=== PATIENT | male | born 1960 ===

== ENCOUNTER 2016-08-27 17:04 | Inpatient (IN) | payer BC ==
[2016-08-27] MEDS ORDERED: SODIUM CHLORIDE 0.9% 1000ML 1,000 ML IVS ONE (18:16)
[2016-08-27] MEDS ORDERED: DICYCLOMINE HCL INJ 20 MG/2 ML AMP IM ONE (19:05)
[2016-08-27] MEDS ORDERED: MORPHINE SULFATE INJ 10 MG/ML VIAL IV ONE (19:06)
--- NOTE | 2016-08-27 19:27 | ED.PDOC ---
History of Present Illness - General Chief Complaint: GI Problem Stated Complaint: fever, cough, chest pain, n/v/d Time Seen by Provider: 08/27/16 19:23 Source: patient Exam Limitations: no limitations - History of Present Illness Initial Comments: James Gallegos 56 y/o male stated that yesterday night had onset of diarrhea watery non bloody accompanied by nausea/vomiting several times and this morning he had fever and chills.He stated that he has chronic abdominal pain, diverticulosis and chf,thoracic aneurysm s/p repair. Timing/Duration: 24 hours Severity: moderate Improving Factors: nothing Worsening Factors: eating Associated Symptoms: loss of appetite, nausea/vomiting Allergies/Adverse Reactions: Allergies NO KNOWN ALLERGY Allergy (Verified 08/27/16 17:37) Home Medications: Ambulatory Orders Amlodipine Besylate 10 mg PO DAILY 08/27/16 Dicyclomine HCl 20 mg PO TID 08/27/16 Escitalopram [Lexapro] 10 mg PO DAILY 08/27/16 Txmyqowh-Jhrhclem-Bvkzbvrszs A [Emetrol] 1 melanie PO PRN 08/27/16 Lisinopril 20 mg PO BID 08/27/16 Nitroglycerin [Nitrostat] 0.4 mg SL PRN 08/27/16 Ondansetron [Zofran Odt] 8 mg PO PRN 08/27/16 Ranitidine HCl 150 mg PO DAILY 08/27/16 Varenicline Tartrate [Chantix Starting M... 0.5 mg X 11 & 1 mg X 42] 1 narinder PO DAILY 08/27/16 Review of Systems - Review of Systems Constitutional: States: fever EENTM: States: no symptoms reported Respiratory: States: no symptoms reported Cardiology: States: no symptoms reported Gastrointestinal/Abdominal: States: see HPI Genitourinary: States: no symptoms reported Musculoskeletal: States: no symptoms reported Skin: States: no symptoms reported Neurological: States: no symptoms reported Endocrine: States: no symptoms reported Hematologic/Lymphatic: States: no symptoms reported Past Medical History (General) - Patient Medical History Hx Cardiac Disorders: Yes Hx Congestive Heart Failure: Yes Hx Hypertension: Yes Surgical History: other - Thoracic aortic aneurysm repair - Vaccination History Hx Tetanus, Diphtheria Vaccination: No Hx Influenza Vaccination: No Hx Pneumococcal Vaccination: No Immunizations Up to Date: No - Social History Hx Tobacco Use: Yes Hx Alcohol Use: Yes - occasional Hx Substance Use: No Hx Substance Use Treatment: No Hx Depression: No - Activities of Daily Living Patient Lives Alone: No - family Hospice Agency (if applicable):: None Grooming Ability: Independent Eating (Feeding) Ability: Independent Toileting Ability: Independent - Female History Patient is a Female of Child Bearing Age (10 -59 yrs old): No Patient : No Family Medical History - Family History Mother Family History: Unknown Hx Family Hypertension: Yes - parents Hx Family Diabetes: Yes - parents Hx Family Cancer: Yes - prostate Physical Exam - Physical Exam General Appearance: Alert, No apparent distress Eye Exam: bilateral normal Ears, Nose, Throat: hearing grossly normal, normal ENT inspection, normal pharynx Neck: non-tender, full range of motion, supple Respiratory: chest non-tender, lungs clear, normal breath sounds, no respiratory distress Cardiovascular/Chest: normal peripheral pulses, regular rate, rhythm, no edema, no gallop, no JVD, no murmur Gastrointestinal/Abdominal: normal bowel sounds, soft, no organomegaly, no pulsatile mass, tenderness - left side abdomen no peritoneal signs Back Exam: no CVA tenderness, no vertebral tenderness Extremity: non-tender, normal inspection, no pedal edema, no calf tenderness Neurologic: no motor/sensory deficits, alert, normal mood/affect, oriented x 3 Skin Exam: normal color, warm/dry Lymphatic: no adenopathy Progress - Results/Orders Results/Orders: 08/27/16 18:30 EKG STAT 08/27/16 19:49 Sodium Chloride 0.9% 1000ML [Ns 1000 ml] 1,000 ml IVS .QD 08/27/16 19:57 CLOSTRIDIUM DIFFICILE AG/TOXIN Stat 08/27/16 19:59 Hold Metformin x 48Hrs [id number] Laboratory Results WBC 14.7 K/mm3 (4.8-10.8) H 08/27/16 18:16 RBC 4.36 M/mm3 (4.70-6.10) L 08/27/16 18:16 Hgb 13.7 gm/dL (14.0-18.0) L 08/27/16 18:16 Hct 41.3 % (42.0-52.0) L 08/27/16 18:16 MCV 94.6 fl (80.0-94.0) H 08/27/16 18:16 MCH 31.4 pg (27.0-31.0) H 08/27/16 18:16 MCHC 33.2 g/dL (33.0-37.0) 08/27/16 18:16 RDW 13.4 % (11.5-14.5) 08/27/16 18:16 Plt Count 290 K/mm3 (130-400) 08/27/16 18:16 MPV 6.9 fl (7.40-10.4) L 08/27/16 18:16 Absolute Neuts (auto) 11.60 K/uL (1.8-6.8) H 08/27/16 18:16 Absolute Lymphs (auto) 1.70 K/uL (1.0-3.4) 08/27/16 18:16 Absolute Monos (auto) 1.30 K/uL (0.2-0.8) H 08/27/16 18:16 Absolute Eos (auto) 0.00 K/uL (0.0-0.4) 08/27/16 18:16 Absolute Basos (auto) 0.10 K/uL (0.0-0.1) 08/27/16 18:16 Neutrophils % 78.8 % (42.0-78.0) H 08/27/16 18:16 Lymphocytes % 11.4 % (20.0-50.0) L 08/27/16 18:16 Monocytes % 9.1 % (2.0-9.0) H 08/27/16 18:16 Eosinophils % 0.0 % (1.0-5.0) L 08/27/16 18:16 Basophils % 0.7 % (0.0-2.0) 08/27/16 18:16 Sodium 135 mmol/L (135-145) 08/27/16 18:16 Potassium 3.2 mmol/L (3.6-5.0) L 08/27/16 18:16 Chloride 105 mmol/L (101-111) 08/27/16 18:16 Carbon Dioxide 22 mmol/L (21-31) 08/27/16 18:16 Anion Gap 11.2 (12-18) L 08/27/16 18:16 BUN 19 mg/dL (7-18) H 08/27/16 18:16 Creatinine 1.15 mg/dL (0.6-1.3) 08/27/16 18:16 BUN/Creatinine Ratio 16.5 (10-20) 08/27/16 18:16 Random Glucose 130 mg/dL (70-105) H 08/27/16 18:16 Serum Osmolality 274.1 mOsm/L (275-295) L 08/27/16 18:16 Lactic Acid 0.7 mmol/L (0.5-2.2) 08/27/16 19:40 Calcium 9.8 mg/dL (8.4-10.2) 08/27/16 18:16 Total Bilirubin 0.8 mg/dL (0.2-1.0) 08/27/16 18:16 AST 22 IU/L (10-42) 08/27/16 18:16 ALT 13 IU/L (10-60) 08/27/16 18:16 Alkaline Phosphatase 94 IU/L (42-121) 08/27/16 18:16 Creatine Kinase 318 IU/L (38-174) H* 08/27/16 18:16 CK-MB (CK-2) 2.6 ng/mL (0.0-4.4) 08/27/16 18:16 CK-MB (CK-2) % Not Reportable 08/27/16 18:16 Troponin I 0.05 ng/mL (0.01-0.05) 08/27/16 19:40 B-Natriuretic Peptide 74.0 pg/ml (0-100) 08/27/16 19:40 Serum Total Protein 7.7 gm/dL (6.4-8.2) 08/27/16 18:16 Albumin 4.2 g/dl (3.2-5.5) 08/27/16 18:16 Globulin 3.5 gm/dL (2.3-3.5) 08/27/16 18:16 Albumin/Globulin Ratio 1.2 (1.1-1.9) 08/27/16 18:16 Urine Color Yellow (Yellow) 08/27/16 20:29 Urine Appearance Clear (Clear) 08/27/16 20:29 Urine pH 5.5 (4.5-7.8) 08/27/16 20:29 Ur Specific [place] 1.020 (1.005-1.030) 08/27/16 20:29 Urine Protein 100 mg/dL H 08/27/16 20:29 Urine Glucose (UA) Negative mg/dL (Negative) 08/27/16 20:29 Urine Ketones Trace mg/dL (NEGATIVE) 08/27/16 20:29 Urine Blood Moderate (Negative) H 08/27/16 20:29 Urine Nitrite Negative 08/27/16 20:29 Urine Bilirubin Small (NEGATIVE) H 08/27/16 20:29 Urine Urobilinogen 0.2 mg/dL (0.2-1.0) 08/27/16 20:29 Ur Leukocyte Esterase Negative (Negative) 08/27/16 20:29 Urine RBC 1-3 /hpf 08/27/16 20:29 Urine WBC 1-3 /hpf 08/27/16 20:29 Ur Epithelial Cells 0 /hpf 08/27/16 20:29 Urine Bacteria 1+ 08/27/16 20:29 Urine Mucus Large 08/27/16 20:29 - EKG/XRAY/CT CT Ordered: Yes - abdomen/pelvis:acute sigmoid diverticulitis,aaa-stable/ radiologist Departure - Departure Clinical Impression: Diarrhea, Diverticulitis of sigmoid colon Abdominal pain Qualifiers: Abdominal location: lower abdomen Qualifier Code: (R10.30) Lower abdominal pain , unspecified Time of Disposition: 21:27 - D/W Dr. Joiner-Hospitalist Disposition: Admit Patient Condition: Fair Departure Forms: Patient Portal Self Enrollment Diet: other - NPO Referrals: Grover Sarmiento III, MD [Primary Care Provider] - 1-2 Weeks Home Medications: Ambulatory Orders Amlodipine Besylate 10 mg PO DAILY 08/27/16 Dicyclomine HCl 20 mg PO TID 08/27/16 Escitalopram [Lexapro] 10 mg PO DAILY 08/27/16 Gjycders-Cnpqstmq-Xcaauodwue A [Emetrol] 1 melanie PO PRN 08/27/16 Lisinopril 20 mg PO BID 08/27/16 Nitroglycerin [Nitrostat] 0.4 mg SL PRN 08/27/16 Ondansetron [Zofran Odt] 8 mg PO PRN 08/27/16 Ranitidine HCl 150 mg PO DAILY 08/27/16 Varenicline Tartrate [Chantix Starting M... 0.5 mg X 11 & 1 mg X 42] 1 narinder PO DAILY 08/27/16
[2016-08-27] MEDS ORDERED: SODIUM CHLORIDE 0.9% 1000ML 1,000 ML IVS PRN (19:49)
--- NOTE | 2016-08-27 20:15 | RAD ---
Procedure: XR CHEST 1 VIEW Exam Date: 08/27/2016 Ordering Provider: Power Judge Clinical Indication: fever Comparison: 10/02/2011 Findings: Residuals of thoracic surgery. Cardiac size is magnified by technique. Pulmonary vasculature is normal. Mediastinal contour is normal. Aortic contour is tortuous. There is no focal lung consolidation. No pleural effusion. There is no pneumothorax. There is no acute bony or soft tissue abnormality. Impression: 1. No acute abnormalities in the chest. Electronically signed by: Maxx Srivastava MD 08/27/2016 8:14 PM CDT
--- NOTE | 2016-08-27 21:18 | CT ---
Procedure: CT ABDOMEN PELVIS WITH IV CONTRAST Exam Date: 08/27/2016 Ordering Provider: Power Judge Clinical Indication: Generalized abdominal pain Comparison: 03/29/2015 TECHNIQUE: 5 mm images were taken through the abdomen and pelvis after the administration of nonionic intravenous contrast material. Oral contrast was not administered. Coronal and sagittal reformatted images were generated. This exam was performed according to our departmental dose optimization program which includes use of automated exposure control, adjustment of the mA and/or kV according to patient size and/or use of iterative reconstruction technique. FINDINGS: Lower chest: Nonacute Abdomen: Liver and biliary system: No liver lesions. Very mild intrahepatic biliary ductal dilatation. There is cholelithiasis without CT evidence of acute cholecystitis. Spleen: Unremarkable Pancreas: Unremarkable Adrenal glands: Unremarkable Kidneys: No suspicious lesions or hydronephrosis in either kidney. Lymph nodes: No lymphadenopathy. Retroperitoneum, peritoneal cavity, abdominal wall: No ascites. No free intraperitoneal air. 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 No para-aortic hematoma. Stable abdominal aortic aneurysm measuring 3.7 cm at the level of the celiac artery. Pelvis: Lymph nodes: No lymphadenopathy Peritoneal cavity: Trace pelvic free fluid Bowel: Multiple top limits of normal in size loops of small bowel with air-fluid levels. Postsurgical changes at the level of the cecum likely related to prior appendectomy. Mural thickening of the sigmoid colon with subtle adjacent fatty infiltration. Colonic diverticula. No abscess formation or evidence of perforation. Bladder: Unremarkable Pelvic organs: Prostate calcifications. Bones: Nonacute IMPRESSION: 1. Findings suggestive of sigmoid diverticulitis. No evidence of perforation or abscess formation. 2. Multiple top limits of normal in size small bowel loops with air-fluid levels. Findings could be reactive or related to recent enteritis, less likely small bowel obstruction. 3. Cholelithiasis without CT evidence of acute cholecystitis. 4. 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 No para-aortic hematoma. 5. Stable abdominal aortic aneurysm measuring 3.7 cm at the level of the celiac artery. Annual follow-up is recommended. Findings were discussed with Dr. Power Judge at the time of dictation. Electronically signed by: Maxx Srivastava MD 08/27/2016 9:18 PM CDT
[2016-08-27] MEDS ORDERED: metroNIDAZOLE IV PREMIX 500MG 500 MG in PREMIX BAG 1 BAG IVPB ONE (21:24)
[2016-08-27] MEDS ORDERED: levoFLOXacin 750MG IV 750 MG in PREMIX BAG 1 BAG IVPB ONE (21:24)
[2016-08-27] MEDS ORDERED: metroNIDAZOLE IV PREMIX 500MG 100 ML IVPB ONE (21:36)
--- NOTE | 2016-08-27 21:45 | HP ---
SUPERVISING PHYSICIAN: James Valladares M.D. CHIEF COMPLAINT: Fever, cough, nausea and vomiting, diarrhea. HISTORY OF PRESENT ILLNESS: Mr. Gallegos is a 56 year-old male patient that presented on 08/27/16 to the Emergency Room after he had an onset of diarrhea that he described as watery and nonbloody that was accompanied by nausea and vomiting several times starting on Friday and progressively worsened until date of admission to the Emergency Department. On the morning of admission, he noted that he was having fever and chills, and that his abdominal pains had worsened. He does have a history of chronic abdominal pain with diverticulosis and has had several admissions for acute diverticulitis. In the Emergency Department, he had a CT of the abdomen done with contrast and per radiology interpretation there is suggestion of a sigmoid diverticulitis with no evidence of perforation or abscess formation. 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 Laboratory studies showed white count of 14.7 initially with hemoglobin 13.7, hematocrit 41.3 with differential showing a left shift. Chemistries did show low potassium 3.2 with BUN 19, creatinine 1.15. Liver functions showed to be within normal limits. Elevated CPK at 318, troponin 0.05. In the Emergency Department he was started on Levaquin and Flagyl and then admitted to the Medical/Surgical floor for continued treatment and evaluation of acute diverticulitis. PAST MEDICAL HISTORY: 1. Diverticulosis. 2. Hyperlipidemia. 3. Hypertension. 4. Tobacco abuse. 5. Gastroesophageal reflux disease controlled with [id number] Zantac. PAST SURGICAL HISTORY: 1. Appendectomy in 1973. 2. Back surgery in 2004 for sciatica. 3. Abdominal aneurysm repair. 4. Valve replacement in 2011 with last echocardiogram showing to be in 2014 with an ejection fraction of 60% with a grade 1 diastolic dysfunction. HOME MEDICATIONS: 1. Emetrol 1 p.r.n. 2. Ranitidine 150 mg daily. 3. Dicyclomine 20 mg 3 times a day. 4. Lisinopril 20 mg twice daily. 5. Lexapro daily. 6. Amlodipine 10 mg daily. 7. Chantix starter pack. 8. Nitrostat 0.4 mg p.r.n. 9. Zofran 80 mg p.r.n. ALLERGIES: NO KNOWN DRUG ALLERGIES. FAMILY HISTORY: Significant for coronary artery disease in his father, also has Alzheimer's disease. Mother at age 54 of unknown cause. She had a history of type 2 diabetes and alcoholism. SOCIAL HISTORY: The patient is employee at [employer]. He is . His at age 36 secondary to pneumonia. He does have a history of 1 pack per day smoker and quit previously in 07/2014. He does report that he drinks on a regular basis and only consumes beer. REVIEW OF SYSTEMS: CONSTITUTIONAL: As noted in the History of Present Illness, fever and general malaise. HEENT: Denies any headaches, nasal congestion or sore throat. RESPIRATORY: Does note he has a nonproductive cough but no shortness of breath. CARDIOVASCULAR: No notable chest pains, syncopal episodes. GASTROINTESTINAL: As noted in the history of present illness. GENITOURINARY: Denies any dysuria, hematuria or other urinary symptoms. NEUROLOGIC: Denies any syncopal episodes, neurological changes or deficits. PHYSICAL EXAMINATION: VITAL SIGNS: Initially in the Emergency Department, temperature was 99.8 with initial blood pressure 137/89, respirations 20, pulse 84. He was satting 98% on room air. Admission weight 78.3 kg. GENERAL: The patient is alert. Appeared to be in no acute distress at time of admission. HEENT: Tympanic membranes were clear bilaterally. Oropharynx was pink with dry mucosal membranes. There are no lesions noted. NECK: Supple with full range of motion. There is no jugular venous distention noted. CHEST: Lungs are clear to auscultation without any notable rhonchi, wheezing or rales. CARDIOVASCULAR: Regular rate and rhythm without appreciable murmurs, gallops, or rubs. ABDOMEN: Notable for left sided abdominal tenderness on palpation with no rebound tenderness. Bowel sounds were present. EXTREMITIES: No clubbing, cyanosis or edema. NEUROLOGIC: He is alert and oriented times three. LABORATORY: Initial laboratory studies showed an elevated white count of 14.7 with hemoglobin 13.7, hematocrit 41.3, platelet count 290,000. Differential did show a left shift. Chemistries initially showed low potassium 3.2 with BUN 19, creatinine 1.15, slightly elevated CPK of 318. All other liver functions showed to be within normal limits. Initial troponin was 0.04, BNP was 74. Urinalysis showed 100 protein with a moderate amount of blood and a small amount of bilirubin. Microscopic revealed 1+ bacteria, zero epithelials, 1 to 3 WBCs, 1 to 3 RBCs, large amount of mucous. RADIOLOGY: Initial chest x-ray in the Emergency Department per radiology interpretation showed no acute abnormalities of the chest. He also then had a CT of the abdomen and pelvis with contrast and per radiology interpretation there were findings of sigmoid diverticulitis but no evidence of perforation or abscess formation. There was also note that there were multiple top limits of normal in size small bowel loops with air-fluid levels. Findings could be consistent related to recent enteritis but less likely a small bowel obstruction. Also noted cholelithiasis on the CT without any evidence of cholecystitis. There was also mention of chronic dissection of the aorta extending to the left external iliac aorta with no periaortic hematoma and there is a stable abdominal aortic aneurysm measuring 3.7 at the level of the celiac artery. ASSESSMENT: 1. Acute sigmoid diverticulitis with the patient having a history of chronic diverticulosis and multiple episodes of diverticulitis. 2. Leukocytosis secondary to number 1. 3. Mild electrolyte imbalance with a mild hypokalemia. 4. Moderate dehydration secondary to nausea and vomiting associated symptoms with acute diverticulitis. 5. History of gastroesophageal reflux disease controlled with over-the- counter Zantac. 6. Chronic tobacco abuse. 7. History of hypertension. 8. Hyperlipidemia. PLAN: The patient will be admitted to the Medical/Surgical floor for continued treatment and evaluation of acute sigmoid diverticulitis. Dr. Douglass has been consulted and will await his findings. Will start the patient on Levaquin and Flagyl. He will be on bowel rest with NPO status with IV fluids per fluid maintenance. Anticipate length of stay to be 2 to 3 days. Until then, the patient will be closely monitored and treated appropriately. Once the patient is clinically stable enough to be discharged, he can continue with outpatient treatment and he will need close clinical followup with his primary care provider, Dr. Sarmiento. #[id number] [facility]
[2016-08-27] MEDS ORDERED: SODIUM CHLORIDE 0.9% (FLUSH) 10 ML SYG IV PRN (21:48)
[2016-08-27] MEDS ORDERED: LEVALBUTEROL NEBS 1.25 MG/3 ML VIAL INH PRN (21:48)
[2016-08-27] MEDS ORDERED: IV SET AND CAP CHANGE INJ INJ SCH (22:00)
[2016-08-27] MEDS: KCL 20 MEQ/NS 1,000 ML IVS PRN (23:04)
[2016-08-27] MEDS: LEVALBUTEROL NEBS 1.25 MG/3 ML VIAL INH SCH (23:24)
[2016-08-28] MEDS: MORPHINE SULFATE INJ 10 MG/ML VIAL IV PRN ×3 (00:10→12:37)
[2016-08-28] MEDS ORDERED: metroNIDAZOLE IV PREMIX 500MG 100 ML IVPB ONE ×2 (09:12→17:03)
[2016-08-28] MEDS: LISINOPRIL 10 MG TAB PO SCH ×2 (09:12→20:37)
[2016-08-28] MEDS: metroNIDAZOLE IV PREMIX 500MG 500 MG in PREMIX BAG 1 BAG IVPB SCH ×2 (09:14→17:16)
[2016-08-28] MEDS: LEVALBUTEROL NEBS 1.25 MG/3 ML VIAL INH SCH ×3 (09:45→20:17)
--- NOTE | 2016-08-28 10:03 | CONS ---
DATE OF CONSULTATION: 08/28/16 HISTORY OF PRESENT ILLNESS: The patient is a 56-year-old male who was admitted through the Emergency Room with abdominal pain, nausea, vomiting and found to have a mildly elevated white count. The patient states he has been told in the past that he has a history of diverticulitis. He denies blood per rectum, melanotic stools, weight loss. The patient states it worsened with food, but no specific food. PAST MEDICAL HISTORY: 1. Thoracic aortic aneurysm repair. 2. Hypertension. 3. Cardiac disorder. 4. History of congestive heart failure. MEDICATIONS: 1. Amlodipine. 2. Dicyclomine. 3. Lexapro. 4. Lisinopril. 5. Nitroglycerin. 6. Zofran. 7. Emetrol. ALLERGIES: NO KNOWN DRUG ALLERGIES. FAMILY HISTORY: Positive for diabetes, hypertension, and prostate cancer in his father. SOCIAL HISTORY: The patient has an approximately 30 to 40 pack year history of tobacco abuse. He uses alcohol on a routine basis. He has no history of substance abuse. REVIEW OF SYSTEMS: Unremarkable. He has occasional wheezing, shortness of breath, but no chest pain. PHYSICAL EXAMINATION: GENERAL: The patient is awake, alert, cooperative, in mild distress. VITAL SIGNS: The patient is currently afebrile, normotensive. HEENT: Sclerae nonicteric. Mucous membranes moist. NECK: Without adenopathy. BACK: Without CVA tenderness. CHEST: Equal breath sounds bilaterally. HEART: Regular rate and rhythm. ABDOMEN: Soft. There are active bowel sounds. He has diffuse tenderness, greatest in the suprapubic area. EXTREMITIES: Without cyanosis, clubbing or edema. LABORATORY: White blood cell count last night of 14,000, hemoglobin 13, platelet count 270,000, 78% neutrophils. Potassium slightly low at 3.2, creatinine elevated at 1.15. Urinalysis showed specific gravity of 1.020. There was moderate blood, small bilirubin, 1 to 3 red cells, 1 to 3 white cells , positive urine bacteria. CT scan of the abdomen was consistent with sigmoid diverticulitis without free air or free fluid or specific abscess cavity. ASSESSMENT: 1. Acute diverticulitis, probably more than first episode. PLAN: Bowel rest. Antibiotic therapy with Levaquin and Flagyl. Assuming the patient improves, eventually send him home on a low residue diet with plans for colonoscopy in 6 to 8 weeks. #[id number] [facility]
[2016-08-28] MEDS: KCL 20 MEQ/NS 1,000 ML IVS PRN ×2 (10:41→23:06)
[2016-08-28] MEDS: amLODIPine BESYLATE 5 MG TAB PO SCH (17:17)
[2016-08-28] MEDS: ONDANSETRON INJ 4 MG/2 ML VIAL IV PRN (17:37)
[2016-08-28] MEDS: DICYCLOMINE HCL 20 MG TAB PO SCH (20:23)
[2016-08-28] MEDS: levoFLOXacin 750MG IV 750 MG in PREMIX BAG 1 BAG IVPB SCH (20:24)
[2016-08-29] MEDS ORDERED: metroNIDAZOLE IV PREMIX 500MG 100 ML IVPB ONE ×5 (00:09→19:58)
[2016-08-29] MEDS: metroNIDAZOLE IV PREMIX 500MG 500 MG in PREMIX BAG 1 BAG IVPB SCH ×3 (00:12→15:59)
[2016-08-29] MEDS ORDERED: NICOTINE PATCH 14 MG TD ONE (07:35)
[2016-08-29] MEDS ORDERED: ESCITALOPRAM 10 MG TAB ONE (07:35)
[2016-08-29] MEDS: SODIUM CHLORIDE 0.9% (FLUSH) 10 ML SYG IV SCH ×3 (08:19→21:18)
[2016-08-29] MEDS: DICYCLOMINE HCL 20 MG TAB PO SCH ×3 (08:25→20:57)
[2016-08-29] MEDS: ESCITALOPRAM 10 MG TAB PO SCH (08:26)
[2016-08-29] MEDS ORDERED: NICOTINE PATCH 14 MG TD SCH (09:00)
[2016-08-29] MEDS: ONDANSETRON INJ 4 MG/2 ML VIAL IV PRN ×2 (09:38→20:47)
[2016-08-29] MEDS ORDERED: INSULIN DETEMIR 100 UNITS/ML PEN SUBCU ONE (10:33)
[2016-08-29] MEDS ORDERED: PROCHLORPERAZINE INJ 10 MG/2 ML VIAL IV PRN (10:56)
[2016-08-29] MEDS ORDERED: MAGNESIUM HYDROXIDE 30 ML UD PO ONE (10:57)
[2016-08-29] MEDS ORDERED: KCL 20 MEQ/NS 0 ML IVS ONE (11:00)
[2016-08-29] MEDS ORDERED: DEX 5% W/NACL 0.45% 1000ML 0 ML IVS ONE (11:04)
[2016-08-29] MEDS: MORPHINE SULFATE INJ 10 MG/ML VIAL IV PRN (11:08)
[2016-08-29] MEDS: KCL 20MEQ/D5 1/2NS 1,000 ML IVS PRN ×2 (11:16→17:57)
[2016-08-29] MEDS: NON-FORMULARY MEDICATION 1 EA MIS (Amlodipine Besylate [Amlodipine Besylate] 10 MG) PO SCH (11:41)
[2016-08-29] MEDS: LISINOPRIL 10 MG TAB PO SCH ×3 (11:42→20:56)
--- NOTE | 2016-08-29 11:44 | RAD ---
EXAM DESCRIPTION: Abdomen Flat Upright CLINICAL HISTORY: 56 years Male, Diverticulitis COMPARISON: None. FINDINGS: The lung bases are clear without evidence of previous sternotomy with no free abdominal air and small air-fluid levels scattered in both the small bowel and colon suggesting an ileus or enterocolitis. Minimal prominence of small bowel loops in the left mid abdomen are present but in a nonobstructive pattern. An unusual air-fluid collection in the lower abdomen or pelvis to strongly suggest an abscess is not apparent. No unusual calcifications or bony abnormalities noted. IMPRESSION: Abnormal abdomen with mildly prominent small bowel and air-fluid levels in the colon and small bowel most consistent with an ileus or an enterocolitis. Electronically signed by: James Correia MD 08/29/2016 11:44 AM CDT
[2016-08-29] MEDS: PANTOPRAZOLE SODIUM IV 40 MG VIAL IV SCH (11:50)
[2016-08-29] MEDS: LEVALBUTEROL NEBS 1.25 MG/3 ML VIAL INH SCH ×3 (12:13→20:17)
[2016-08-29] MEDS ORDERED: PROCHLORPERAZINE INJ 10 MG/2 ML VIAL IV ONE (12:16)
[2016-08-29] MEDS ORDERED: PROMETHAZINE SUPP 25 MG SUP PR ONE (12:17)
[2016-08-29] MEDS ORDERED: ONDANSETRON INJ 4 MG/2 ML VIAL IV ONE (12:18)
[2016-08-29] MEDS: amLODIPine BESYLATE 5 MG TAB PO SCH (18:16)
[2016-08-29] MEDS ORDERED: CARVEDILOL 12.5 MG TAB ONE (19:57)
--- NOTE | 2016-08-29 20:19 | PN ---
DATE: 08/29/16 SUPERVISING PHYSICIAN: James Valladares M.D. SUBJECTIVE: The patient continues to be nauseated this morning. He was given a nicotine patch which may have contributed to this as well as he was advanced to clear liquids which may have been prematurely done. He does remain afebrile. His daughter is present at time of assessment and was quite irritated with the situation saying we were not taking care of her dad's problem. She requested the patient be transferred. I did speak with her at length and explain that the patient would not be able to be transferred at her request, that care was being provided and reassured the patient and daughter as well that everything was being done, and he was being followed closely by hospitalist group as well as general surgery with Dr. Douglass. The patient reassured his daughter that he wanted to stay in the hospital in [place] and would comply with the treatment plan. OBJECTIVE: VITAL SIGNS: T max 98.7, pulse 51, blood pressure 155/82, respirations 18, O2 sat 98% on room air. I's and O's show a positive balance of 1869 with 2494 in, 625 out. He has had some diarrhea. Weight is 78.8 kg. CHEST: Lungs remain clear to auscultation bilaterally. HEART: Regular rate and rhythm. ABDOMEN: Remains soft with positive bowel sounds with just some mild diffuse tenderness. No rebound tenderness on deep palpation. EXTREMITIES: No clubbing cyanosis or edema. NEUROLOGIC: He remains alert and oriented times three. LABORATORY: White count remains within normal limits at 6.8 with hemoglobin 12.1, hematocrit 36.2, platelet count 210,000. Differential now has normalized without a left shift. Chemistries show just a mildly low sodium at 131 with potassium 3.7, BUN 13, creatinine 0.8. MICROBIOLOGY: There are no microbiology specimens. RADIOLOGY: Abdominal series is pending. ASSESSMENT: 1. Acute sigmoid diverticulitis with the patient having a history of chronic diverticulosis and multiple episodes of diverticulitis in the past. 2. Leukocytosis secondary to number 1, now resolved after starting on antibiotic therapy. 3. Mild electrolyte imbalance on admission with a mild hypokalemia, now resolved after IV therapy. 4. Moderate dehydration secondary to persistent nausea and vomiting associated with his symptoms of acute diverticulitis, improving with IV therapy. 5. History of gastroesophageal reflux disease controlled with over-the- counter Zantac in addition to IV Protonix. 6. Chronic tobacco abuse. 7. History of hypertension. 8. Hyperlipidemia. PLAN: The patient will be continued on current plan of care NPO for bowel rest. Dr. Douglass continues to follow the patient. He recommends that we continue with antiemetics, pain medicine and fluids. Anticipate an additional 1 to 2 days of admission for continued antibiotic therapy to include Levaquin and Flagyl. The patient is shown to be stable in regards to his H&H and white count, but continues to be symptomatic in regards to nausea and vomiting. Will continue to support the patient medically and anticipate discharge once the patient is able to tolerate advancing his diet at which time he can discharge to continue with outpatient antibiotic therapy and to followup with his primary care provider, Dr. Sarmiento. Until discharge, will continue to follow the patient closely and treat appropriately. #[id number] [facility]
[2016-08-29] MEDS: levoFLOXacin 750MG IV 750 MG in PREMIX BAG 1 BAG IVPB SCH (20:50)
[2016-08-29] MEDS ORDERED: NON-FORMULARY MEDICATION 1 EA MIS (Carvedilol [Carvedilol] 25 MG) PO SCH (21:00)
[2016-08-29] MEDS ORDERED: CARVEDILOL 12.5 MG TAB PO ONE (21:00)
[2016-08-30] MEDS: metroNIDAZOLE IV PREMIX 500MG 500 MG in PREMIX BAG 1 BAG IVPB SCH ×2 (00:21→08:37)
--- NOTE | 2016-08-30 01:34 | PCM.CORE ---
Physician DVT/VTE - Nurse DVT Assessment & Total Each Risk Factor Represents 2 Points: Major Surgery >45 minutes Each Risk Factor Represents 1 Point: Age 41-60, Hx of smoking past year Each Risk Factor is 1 Point: Hx of Inflammatory Bowel Disease DVT Assessment Score: 5 - 5 or more Very High Risk Treatments: Early Ambulation *, Sequential Compression Device Pharmacological: Enoxaparin 40mg SQ Daily
[2016-08-30] MEDS: PANTOPRAZOLE SODIUM IV 40 MG VIAL IV SCH (06:15)
[2016-08-30 07:51] VITALS: O2SAT 98
[2016-08-30] MEDS: LEVALBUTEROL NEBS 1.25 MG/3 ML VIAL INH SCH ×2 (07:52→15:48)
[2016-08-30] MEDS ORDERED: metroNIDAZOLE IV PREMIX 500MG 100 ML IVPB ONE (08:19)
[2016-08-30] MEDS ORDERED: CARVEDILOL 12.5 MG TAB PO SCH (09:00)
[2016-08-30] MEDS: DICYCLOMINE HCL 20 MG TAB PO SCH (10:16)
[2016-08-30] MEDS: ESCITALOPRAM 10 MG TAB PO SCH (10:16)
[2016-08-30] MEDS: LISINOPRIL 10 MG TAB PO SCH ×2 (10:16→15:49)
[2016-08-30] MEDS: ENOXAPARIN SODIUM 40 MG/0.4 ML SYG SUBCU SCH ×2 (10:17→10:19)
[2016-08-30] MEDS: SODIUM CHLORIDE 0.9% (FLUSH) 10 ML SYG IV SCH (10:17)
[2016-08-30] MEDS: NON-FORMULARY MEDICATION 1 EA MIS (Amlodipine Besylate [Amlodipine Besylate] 10 MG) PO SCH (10:24)
[2016-08-30 10:45] VITALS: BP 154/71; TEMP 97.3
[2016-08-30] MEDS ORDERED: metroNIDAZOLE 500 MG TAB PO SCH (12:30)
[2016-08-30] MEDS ORDERED: levoFLOXacin 500 MG TAB PO SCH (12:30)
--- NOTE | 2016-09-02 10:40 | DS ---
SUPERVISING PHYSICIAN: Vj Alamo MD DISCHARGE DIAGNOSIS: 1. Acute sigmoid diverticulitis with the patient having a history of chronic diverticulosis and multiple episodes of diverticulitis in the past, showing improvement after starting therapy to include IV fluids, bowel rest, and antibiotics. 2. Leukocytosis, secondary to #1, showing resolution after starting on antibiotic therapy. 3. Mild electrolyte imbalance on admission with a mild hypokalemia, resolved after IV therapy. 4. Moderate dehydration secondary to persistent nausea and vomiting associated with symptoms of diverticulitis, improving with IV therapy. 5. History of gastroesophageal reflux disease, controlled with over-the- counter Zantac in addition to IV Protonix. 6. Chronic tobacco abuse. 7. History of hypertension. 8. Hyperlipidemia. HISTORY OF PRESENT ILLNESS: Mr. Gallegos is a 56-year-old, male patient that presented on 08/27/16 to the Emergency Room after he had an onset of diarrhea that he described as watery and nonbloody that was accompanied by nausea and vomiting several times starting on Friday and progressively worsened until date of admission to the Emergency Department. On the morning of admission, he noted that he was having fever and chills, and that his abdominal pains had worsened. He does have a history of chronic abdominal pain with diverticulosis and has had several admissions for acute diverticulitis. In the Emergency Department, he had a CT of the abdomen done with contrast and per radiology interpretation there is suggestion of a sigmoid diverticulitis with no evidence of perforation or abscess formation. 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 Laboratory studies showed white count of 14.7 initially with hemoglobin 13.7, hematocrit 41.3 with differential showing a left shift. Chemistries did show low potassium 3.2 with BUN 19, creatinine 1.15. Liver functions showed to be within normal limits. Elevated CPK at 318, troponin 0.05. In the Emergency Department he was started on Levaquin and Flagyl and then admitted to the Medical/Surgical floor for continued treatment and evaluation of acute diverticulitis. LABORATORY: Initial white count on admission was 14.7, after initiation of therapy, it normalized and at discharge was 6.8. Hemoglobin and hematocrit remained stable and at discharge were 12.1 and 36.2. Platelet count 210,000. Differential did show a left shift initially, but after initiation of therapy, it normalized and at discharge was normal. Chemistries at time of admission showed electrolytes with potassium 3.2 and normal sodium of 135, BUN 19, creatinine 1.15. CPK 318, troponin 0.04. BNP 74. Liver functions were all within normal limits. Lactic acid was 0.7. After initiation of therapy throughout at hospitalization, at discharge, potassium was 3.4, sodium 136. Liver functions remained within normal limits. Urinalysis on admission showed protein 100, moderate blood, small amount of bilirubin with microscopic showing normal limits. MICROBIOLOGY: No specimens were submitted. RADIOLOGY: Initial chest x-ray in the Emergency Department prior to admission per radiology interpretation showed no acute abnormalities of the chest. He had a CT of the abdomen and pelvis with contrast and per radiology interpretation, there were findings of suggested sigmoid diverticulitis but no evidence of perforation or abscess formation. There was also note that there were multiple top limits of normal in size small bowel loops with air-fluid levels. Findings could be related to recent enteritis, but less likely a small bowel obstruction. Also noted cholelithiasis on the CT without any evidence of cholecystitis. There was also mention of chronic dissection of the aorta extending to the left external iliac aorta with no periaortic hematoma and there is a stable abdominal aortic aneurysm measuring 3.7 at the level of the celiac artery with recommendation for annual followup. HOSPITAL COURSE: Mr. Gallegos was admitted through the Emergency Department as noted in history of present illness. He was started on Flagyl and Levaquin for diverticulitis. He was made NPO for bowel rest and provided antiemetics. Medical consultation was requested by Dr. Douglass who followed the patient through admission and discharge. The patient was slowly transitioned to a clear liquid diet and prior to discharge was tolerating this well. He did have some episodes of nausea and vomiting which were controlled with Phenergan and Zofran. Clinically, he did improve and was able to tolerate a diet prior to discharge. PLAN: The patient was discharged on 08/30/16 with instructions to have close clinical followup with Dr. Sarmiento in 7 days and was to call the office to schedule an appointment. He was to resume his home medications as previous to admission and to take new medications as directed. He was encouraged to increase his fluids daily to prevent dehydration and return to the hospital should he failure of improvement in his symptoms or any concerning changes. New prescriptions at discharge included: 1. Flagyl 500 mg q.8h., #21. 2. Levaquin 500 mg q.24h., #7. DIET: Low residual diet. ACTIVITY: Increase as tolerated. CONDITION AT DISCHARGE: Stable. #[id number] [facility]
== END 2016-08-30 16:05 | disposition home or self-care (01) | DRG 391 ==
LOC: ER 17:04 → OBSVTOIN 21:42 → MS 21:42
PROVIDERS: ADMIT Emergency Medicine; ATTEND Nurse Practitioner Family
PROC: BW21YZZ Computerized Tomography (CT Scan) of Abdomen and Pelvis using Other Contrast (ICD-10-PCS; principal; 2016-08-27)
DX: K57.32 Diverticulitis of large intestine without perforation or abscess without bleeding (principal); I71.02 Dissection of abdominal aorta; E87.6 Hypokalemia; E86.0 Dehydration; K21.9 Gastro-esophageal reflux disease without esophagitis; I10 Essential (primary) hypertension; E78.5 Hyperlipidemia, unspecified; G89.29 Other chronic pain; I71.4 Abdominal aortic aneurysm, without rupture; Z95.2 Presence of prosthetic heart valve; Z87.891 Personal history of nicotine dependence; Z79.899 Other long term (current) drug therapy

== ENCOUNTER 2016-11-06 05:49 | Day surgery (SDC) | payer BC ==
[2016-11-06] MEDS ORDERED: LACTATED RINGERS 1,000 ML ONE (07:00)
--- NOTE | 2016-11-06 09:13 | OP ---
DATE OF PROCEDURE: 11/06/16 PREPROCEDURE DIAGNOSIS: 1. Abnormal CT scan exam. 2. Thickening within the sigmoid colon. 3. Diverticulosis. 4. Left lower quadrant pain. POSTPROCEDURE DIAGNOSIS: 1. Moderately severe diverticulosis in the sigmoid and descending colon. 2. 1 cm polyp in the ascending colon with a mucus cap. PROCEDURE: 1. Colonoscopy to the cecum. 2. Polypectomy. SURGEON: Jai Martin MD. ANESTHESIA: Monitored anesthesia care. FINDINGS: With the patient under adequate sedation, digital exam showed normal anal canal. Slightly enlarged prostate. No rectal masses. Rectum is otherwise unremarkable. Moderate severely diverticulosis in the sigmoid and descending colon area with large diverticular openings. Significant spasm and mild narrowing. No actual tight stricture. There are some erythematous changes around the diverticular openings, but there was no evidence of any acute inflammation. The descending colon was otherwise normal. Splenic flexure was unremarkable. The transverse colon was normal. The ascending colon and cecum were reached. The ileocecal valve and appendix opening both identified. There is a small polyp, a little over 1 cm in size, sessile in appearance in the proximal ascending colon just near the cecum. It has a mucus cap. The entire polyp was removed at the base without any difficulty and cautery applied. Hemostasis adequate. No bleeding was seen at the end of the procedure. The polyp was retrieved broken down into pieces and retrieved in the polyp trap. The polyp cauterized base was clean. The patient tolerated the procedure well. Reexamination of the colon on scope withdrawal did not show any additional new findings. Both flexures were carefully examined. Total scope withdrawal time was 7-1/2 minutes. FINAL IMPRESSION: 1. Moderately severe diverticulosis of the sigmoid and descending colon without evidence of diverticulitis. No mucosal changes. 2. 1 cm sized polyp in the ascending colon near the cecum, removed by endoscopic cauterized polypectomy. RECOMMENDATION: 1. High fiber diet. Metamucil on a regular basis. Add MiraLAX. 2. Recommend followup colonoscopy for polyp surveillance in five years. 3. Resume all medications. 4. Advise about bleeding and pain. If any of those occur, the patient is advised to call us right away. 5. Otherwise, the patient is to return to primary care physician for regular care. #[id number] cc: MD FAITH Mukherjee
--- NOTE | 2016-11-06 09:34 | RAD ---
EXAM DESCRIPTION: Abdomen Flat Upright CLINICAL HISTORY: 56 years Male, POST COLONOSCOPY COMPARISON: None. FINDINGS: There is a large amount of gas scattered throughout the colon. There are several gas-filled small bowel loops scattered throughout the midabdomen, none of which appear markedly dilated. Surgical clips in the right lower quadrant may be related to prior appendectomy. Surgical clips are noted in the left inguinal region. The upright view shows no free subdiaphragmatic gas. Postoperative changes in the mediastinum only partially visualized. IMPRESSION: Large amount of gas scattered throughout the GI tract, but no pneumoperitoneum or other complication related to recent colonoscopy. Electronically signed by: Miki Jessica MD 11/06/2016 9:33 AM CDT Workstation: [id number]
[2016-11-06] MEDS ORDERED: LIDOCAINE 1% 10 ML VIAL INJ ONE (10:00)
[2016-11-06] MEDS ORDERED: PROPOFOL 200 MG/20 ML VIAL IV ONE (10:00)
[2016-11-06 10:27] VITALS: BP 162/93; TEMP 98; O2SAT 98
== END 2016-11-06 10:20 | disposition home or self-care (01) ==
LOC: AMB 05:49
PROVIDERS: ATTEND Internal Medicine Gastroenterology
DX: K57.32 Diverticulitis of large intestine without perforation or abscess without bleeding (principal); K57.30 Diverticulosis of large intestine without perforation or abscess without bleeding; D12.2 Benign neoplasm of ascending colon; I25.10 Atherosclerotic heart disease of native coronary artery without angina pectoris; I10 Essential (primary) hypertension; F17.210 Nicotine dependence, cigarettes, uncomplicated; K21.9 Gastro-esophageal reflux disease without esophagitis; Z79.82 Long term (current) use of aspirin; Z79.899 Other long term (current) drug therapy
CPT/HCPCS: 00810; 45388; 74010; J3490; J7120

== ENCOUNTER → 2019-10-21 | Outpatient (CLI) | payer BC ==
--- NOTE | 2019-10-21 09:56 | RAD ---
EXAM DESCRIPTION: Hip,Right 2 Views CLINICAL HISTORY: 59 years, Male, PAIN IN RIGHT HIP COMPARISON: None TECHNIQUE: AP and frog leg lateral views of the right hip FINDINGS: Images of the right hip demonstrate no acute displaced fracture or dislocation. No displaced femoral neck fracture. The osseous alignment is intact. Severe right hip osteoarthrosis with essentially [id number] articulation along the superior lateral femoral acetabular weightbearing surface. Femoral head neck junction osteophytosis. Mild degenerative changes at the lumbosacral junction. The bone mineralization is preserved. IMPRESSION: 1. No acute osseous abnormality. 2. Severe right hip osteoarthrosis. Electronically signed by: Manolo Dodson DO 10/21/2019 9:54 AM CDT
--- NOTE | 2019-10-21 09:58 | RAD ---
EXAM DESCRIPTION: Pelvis CLINICAL HISTORY: PAIN IN RIGHT HIP COMPARISON: None Available. TECHNIQUE: Frontal view of the pelvis. FINDINGS: No acute displaced fracture or dislocation seen. The bilateral hip joints are intact. The bilateral sacroiliac joints and symphysis pubis are intact without diastases. There is severe right hip osteoarthrosis and mild left hip osteoarthrosis. Mild degenerative changes of the lumbosacral junction. Left inguinal region surgical clips. Scattered phleboliths are present within the pelvis. IMPRESSION: 1. No acute displaced pelvic fracture. 2. Severe right hip osteoarthrosis. Electronically signed by: Manolo Dodson DO 10/21/2019 9:57 AM CDT
== END ==
LOC: RAD 10:00
PROVIDERS: ATTEND Orthopaedic Surgery
DX: M16.11 Unilateral primary osteoarthritis, right hip (principal)

== ENCOUNTER → 2019-11-29 | Outpatient (CLI) | payer BC | LOC: LAB.O 09:25 | PROVIDERS: ATTEND Orthopaedic Surgery | DX: Z01.818 Encounter for other preprocedural examination (principal) ==

== ENCOUNTER → 2020-03-27 | Outpatient (CLI) | payer BC | LOC: GMAL 14:54 | PROVIDERS: ATTEND Family Medicine | DX: R35.0 Frequency of micturition (principal) ==